=== PATIENT | female | born 1980 | race American Indian/Alaskan Native ===

== ENCOUNTER 2016-10-18 13:57 | Emergency (ER) | payer OTHER ==
[2016-10-18 14:15] VITALS: BP 131/67; PULSE 52; RESP 16; TEMP 98.7; O2SAT 100
[2016-10-18] MEDS ORDERED: TDAP Vaccine 0.5 mL Syr IM ONE (14:21)
--- NOTE | 2016-10-18 14:24 | ED PDOC ---
HPI: General Adult Time Seen by Provider: 10/18/16 14:15 Chief Complaint (Nursing): Bite History Per: Patient Additional Complaint(s): Pt. states earlier today she was bit by a squirrel. Pt. states she was attempting to get the squirrel away from the road. States she was bitten on the R thumb. Denies numbness, tingling. Past Medical History Reviewed: Historical Data, Nursing Documentation, Vital Signs Vital Signs: Last Vital Signs Temp 98.7 F 10/18/16 14:12 Pulse 52 L 10/18/16 14:12 Resp 16 10/18/16 14:12 BP 131/67 10/18/16 14:12 Pulse Ox 100 10/18/16 14:28 - Family History Family History: States: No Known Family Hx - Home Medications Home Medications: Ambulatory Orders Medication Instructions Recorded Amoxicillin/Potassium Clav 1 each PO BID #20 tablet 10/18/16 [Augmentin 500-125 Tablet] - Allergies Allergies/Adverse Reactions: Allergies Allergy/AdvReac Type Severity Reaction Status Date / Time No Known Allergies Allergy Verified 10/18/16 14:12 Review of Systems ROS Statement: Except As Marked, All Systems Reviewed And Found Negative Physical Exam - Physical Exam Appears: Positive for: Well, Non-toxic, No Acute Distress Skin: Positive for: Normal Color, Warm. Negative for: Rash Extremity: Positive for: Normal ROM, Other (R thumb on proximal phalanx with 1 superficial puncture wound without active bleeding, swelling, or surrounding erythema; FROM actively of R thumb; cap refill < 2 seconds of R thumb) - ECG O2 Sat by Pulse Oximetry: 100 - Progress ED Course And Treament: Wound was irrigated and cleansed. DSD applied. Tetanus prophylaxis administered. Disposition - Clinical Impression Clinical Impression: Bitten by squirrel - Patient ED Disposition Is Patient to be Admitted: No - Disposition Referrals: [facility] [Outside] Disposition: Routine/Home Disposition Time: 14:21 Condition: STABLE Prescriptions: Amoxicillin/Potassium Clav [Augmentin 500-125 Tablet] 1 each PO BID #20 tablet Instructions: Animal Bite (ED) Forms: [employer] (Andorran) Print Language: SINHALA
== END 2016-10-18 14:55 | disposition home or self-care (01) ==
LOC: H.ER 13:57
DX: T14.8 Other injury of unspecified body region (principal); W53.21XA Bitten by squirrel, initial encounter; Y92.410 Unspecified street and highway as the place of occurrence of the external cause